=== PATIENT | male | born 1970 | race African-American/Black ===

== ENCOUNTER → 2024-08-18 | Outpatient (CLI) | payer MEDICAID ==
[2024-08-18 10:56] LABS: Total Protein 7.6 g/dL (5.7-8.2)
[2024-08-18 10:57] LABS: Albumin 4.3 g/dL (3.2-4.8); Bilirubin, Direct 0.1 mg/dL (<0.3); Bilirubin, Total 0.4 mg/dL (0.2-1.0)
== END | disposition home or self-care (01) ==
LOC: LAB 10:11
PROVIDERS: ATTEND Podiatrist
DX: B35.1 Tinea unguium (principal)
CPT/HCPCS: 36415; 80076